=== PATIENT | male | born 1985 | race Caucasian/White ===

== ENCOUNTER 2017-04-20 23:02 | Emergency (ER) | payer MEDICAID ==
[~2017-04-20] VITALS: Ht 185.4 cm; Wt 113.4 kg
[2017-04-20 23:09] VITALS: BP 172/113
--- NOTE | 2017-04-20 23:34 | Emergency Room Report ---
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 N Clinical Suspician of Infection? N Mental Status: 1 - Regular (Normal Baseline) Sepsis Risk:Low Sepsis Risk Have you (or family members/close friends) recently traveled outside the [place]? N If Yes, where/when: Have you had exposure to infectious disease within the past month? N TB? Other? Specify: Comment The patient was working on his truck 2 hours ago and felt something drop into his RIGHT eye, he feels like he has resting it. He has photophobia and foreign body sensation. He does not wear contacts or glasses. ALLERGIES Coded Allergies: No Known Allergies (04/20/17) History Medical History General CAD? No Angina: No [place]: No Hypertension? Yes Hyperlipidemia? No CHF? No DVT? No PE? No COPD? No Asthma? No Anemia? No GERD? No Gastric ulcers? No GI Bleed? No Hernia? No Thyroid Problems? No Hypothyroidism? No CVA? No Seizures? No Diabetes? No Renal Insuffiency? No End Stage Renal Disease? No UTI? No Stones? Yes BPH? No GB Disease: No Nephritic Syndrome? No Asplenia? No Hepatitis? No Sickle Cell Disease? No Arthritis? No Migraines? No Cataracts? No Glaucoma? No MRSA? No HIV? No TB? No Anxiety? No Depression? No Cancer? No Immunization Hx DT/Tetanus Unknown Surgical Hx Previous Surgery?Y LITHOTRIPSY TONSILS HAND SURGERY Social History Smoking Hx Smoker: Current Every Day Smoker Tobacco: Yes Type Cigarettes Alcohol Alcohol: Yes Review of Systems All Other Systems Reviewed and Negative Eyes foreign body sensation, pain, photophobia Physical Exam Vital Signs Vital Signs Date Time Temp Pulse Resp B/P Pulse O2 O2 Flow FiO2 Ox Delivery Rate 04/20 2347 98.2 75 20 162/94 97 04/209 98.2 77 20 172/113 97 General Appearance mild distress Eye Exam - bilateral eye PERRL, bilateral eye EOMI Comment Lids everted, no conjunctival foreign bodies. There is a small foreign body at the 5 o'clock position on the cornea. His eye was anesthetized with tetracaine drops. 18-gauge needle was used to remove the foreign body. It appears to all be a rust ring, no discrete foreign body can be removed off of the surface of the cornea. Respiratory Status No: respiratory distress. Cardiovascular regular rate/rhythm Neurologic alert Medical Decision Making LABS/Meds/Orders Pt receiving controlled substance in ED? Yes Pop was queried for this patient? Yes Results/Orders Current Medication Orders Sig/Gopal Start time Last Medication Dose Route Stop Time Status Admin Acetaminophen/ 0 .STK-MED ONE 04/203 DC Codeine Phosphate PO Acetaminophen/ 1 CHINMAY ONCE ONE 04/20 2330 DC 04/20 Codeine Phosphate PO 04/20 2331 2345 Erythromycin 1 GM ONCE ONE 04/20 2330 DC 04/20 OP 04/20 2331 2345 Miscellaneous 0 .STK-MED ONE 04/20 2316 DC XX Orders Procedure Date/time Status GEN NSG/PT REQ (NOT FOR MEDS!) 04/20 2335 Active GEN NSG/PT REQ (NOT FOR MEDS!) 04/20 2332 Active Progress - No optiburr or slit lamp for use in the ED, will refer to ophthalmology for f/u and treatment. Patient prefers Dr. Mcadams. Departure Departure Disposition DC Home or Self Care(routine) Clinical Impression Primary Impression: Corneal rust ring of right eye Condition STABLE Patient Instructions DI for Corneal Foreign Body-Eye Additional Instructions Use erythromycin ointment in the right eye every 4 hours while awake. Eye patch as needed. Tylenol with codeine for pain. See Dr. Mcadams on Saturday for rust ring removal. Additional instructions for EYE PAIN or INJURY: Follow up with an agile java developer as soon as possible. Return to the emergency department if severe pain, loss of vision, pus drainage, severe swelling or redness of eyelids. ED Critical Care Critical Care No at [id number]
--- NOTE | 2017-04-20 23:34 | Emergency Room Report ---
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 N Clinical Suspician of Infection? N Mental Status: 1 - Regular (Normal Baseline) Sepsis Risk:Low Sepsis Risk Have you (or family members/close friends) recently traveled outside the [place]? N If Yes, where/when: Have you had exposure to infectious disease within the past month? N TB? Other? Specify: Comment The patient was working on his truck 2 hours ago and felt something drop into his RIGHT eye, he feels like he has resting it. He has photophobia and foreign body sensation. He does not wear contacts or glasses. ALLERGIES Coded Allergies: No Known Allergies (04/20/17) History Medical History General CAD? No Angina: No [place]: No Hypertension? Yes Hyperlipidemia? No CHF? No DVT? No PE? No COPD? No Asthma? No Anemia? No GERD? No Gastric ulcers? No GI Bleed? No Hernia? No Thyroid Problems? No Hypothyroidism? No CVA? No Seizures? No Diabetes? No Renal Insuffiency? No End Stage Renal Disease? No UTI? No Stones? Yes BPH? No GB Disease: No Nephritic Syndrome? No Asplenia? No Hepatitis? No Sickle Cell Disease? No Arthritis? No Migraines? No Cataracts? No Glaucoma? No MRSA? No HIV? No TB? No Anxiety? No Depression? No Cancer? No Immunization Hx DT/Tetanus Unknown Surgical Hx Previous Surgery?Y LITHOTRIPSY TONSILS HAND SURGERY Social History Smoking Hx Smoker: Current Every Day Smoker Tobacco: Yes Type Cigarettes Alcohol Alcohol: Yes Review of Systems All Other Systems Reviewed and Negative Eyes foreign body sensation, pain, photophobia Physical Exam Vital Signs Vital Signs Date Time Temp Pulse Resp B/P Pulse O2 O2 Flow FiO2 Ox Delivery Rate 04/20 2347 98.2 75 20 162/94 97 04/209 98.2 77 20 172/113 97 General Appearance mild distress Eye Exam - bilateral eye PERRL, bilateral eye EOMI Comment Lids everted, no conjunctival foreign bodies. There is a small foreign body at the 5 o'clock position on the cornea. His eye was anesthetized with tetracaine drops. 18-gauge needle was used to remove the foreign body. It appears to all be a rust ring, no discrete foreign body can be removed off of the surface of the cornea. Respiratory Status No: respiratory distress. Cardiovascular regular rate/rhythm Neurologic alert Medical Decision Making LABS/Meds/Orders Pt receiving controlled substance in ED? Yes Pop was queried for this patient? Yes Results/Orders Current Medication Orders Sig/Gopal Start time Last Medication Dose Route Stop Time Status Admin Acetaminophen/ 0 .STK-MED ONE 04/203 DC Codeine Phosphate PO Acetaminophen/ 1 CHINMAY ONCE ONE 04/20 2330 DC 04/20 Codeine Phosphate PO 04/20 2331 2345 Erythromycin 1 GM ONCE ONE 04/20 2330 DC 04/20 OP 04/20 2331 2345 Miscellaneous 0 .STK-MED ONE 04/20 2316 DC XX Orders Procedure Date/time Status GEN NSG/PT REQ (NOT FOR MEDS!) 04/20 2335 Active GEN NSG/PT REQ (NOT FOR MEDS!) 04/20 2332 Active Progress - No optiburr or slit lamp for use in the ED, will refer to ophthalmology for f/u and treatment. Patient prefers Dr. Mcadams. Departure Departure Disposition DC Home or Self Care(routine) Clinical Impression Primary Impression: Corneal rust ring of right eye Condition STABLE Patient Instructions DI for Corneal Foreign Body-Eye Additional Instructions Use erythromycin ointment in the right eye every 4 hours while awake. Eye patch as needed. Tylenol with codeine for pain. See Dr. Mcadams on Saturday for rust ring removal. Additional instructions for EYE PAIN or INJURY: Follow up with an block cutter as soon as possible. Return to the emergency department if severe pain, loss of vision, pus drainage, severe swelling or redness of eyelids. ED Critical Care Critical Care No at [id number]
== END 2017-04-20 23:53 | disposition home or self-care (01) ==
LOC: ER 23:02
PROC: 08C0XZZ Extirpation of Matter from Right Eye, External Approach (ICD-10-PCS; principal; 2017-04-20)
DX: T15.01XA Foreign body in cornea, right eye, initial encounter (principal); X58.XXXA Exposure to other specified factors, initial encounter; Y93.9 Activity, unspecified; Y92.9 Unspecified place or not applicable; F17.210 Nicotine dependence, cigarettes, uncomplicated; I10 Essential (primary) hypertension